=== PATIENT | male | born 1960 | race Caucasian/White ===

== ENCOUNTER 2017-12-21 01:45 | Inpatient (IN) | payer OTHER ==
[~2017-12-21] VITALS: Ht 170.2 cm; Wt 129.5 kg
[2017-12-21] VITALS (8 sets, daily range): BP systolic 111–220; BP diastolic 58–102
[~2017-12-21 01:45] MED LIST: ASPIRIN325 MG PO; LEXAPRO20 MG PO; LOSARTAN-HCTZ1 EACH PO; METOPROLOL SUCC50 MG PO; NORCO 7.5-3251 EACH PO; SEROQUEL100 MG PO; TRAZODONE HCL100 MG PO; TRICOR145 MG PO; ULTRAM50 MG PO
--- OUTSIDE RECORDS SUMMARY | 2017-12-21 02:04 | XMS REPORT | Clinical Summary ---
Author Author [employer] Address Unknown Phone Unavailable Care Team Providers Care Maintenance Man Name Role Phone Nika Newsome MD PCP Allergies Not on File Current Medications Not on file Active Problems Not on file Encounters Date Type Specialty Care Team Description 11/27/2017 Transcribe Physical Therapy Homero Dick MD Trochanteric bursitis of Orders right hip (Primary Dx) after 12/20/2016 Social History Tobacco Use Types Packs/Day Years Used Date Never Assessed Sex Assigned at Date Recorded Not on file Last Filed Vital Signs Not on file Plan of Treatment Date Type Specialty Care Team Description 12/23/2017 Office Visit Physical Therapy Homero Dick MD [address] [place] [phone] K nox, Jovan, PT 12/25/2017 Office Visit Physical Therapy Homero Dick MD [address] [place] [phone] F Whit olmedo, COLLIERY CLERK 12/30/2017 Office Visit Physical Therapy Homero Dick MD [address] [place] [phone] K nox, Jovan, PT 01/01/2018 Office Visit Physical Therapy Homero Dick MD [address] [place] [phone] K nox, Jovan, PT 01/06/2018 Office Visit Physical Therapy Homero Dick MD [address] [place] [address] [phone] K nox, Jovan, PT 01/08/2018 Office Visit Physical Therapy Homero Dick MD [address] [place] [phone] K nox, Jovan, PT Health Maintenance Due Date Last Done Comments COLONOSCOPY 2010 INFLUENZA VACCINE 04/29/2017 Results Not on fileafter 12/20/2016 Insurance Payer Benefit Subscriber ID Type Phone Address Plan / Group [employer] OPEN xxxxxxxxxxx H[place]ESS/[place] [address]
[2017-12-21] MEDS ORDERED: SODIUM CHLORIDE 0.9% 1000ML 1,000 ML IV SCH (02:30)
[2017-12-21] MEDS: HYDROMORPHONE 1MG/1ML INJ IV PRN ×5 (03:18→22:01)
[2017-12-21] MEDS ORDERED: LOSARTAN-HCTZ1 EAC1 PO (03:33)
[2017-12-21] MEDS ORDERED: METHOCARBAMOL750 MG PO (03:33)
[2017-12-21] MEDS ORDERED: FOLIC ACID1 MG PO (03:33)
[2017-12-21] MEDS ORDERED: CLONIDINE HCL0.1 MG PO (03:33)
[2017-12-21] MEDS ORDERED: FERROUS SULFAT325 MG PO (03:33)
[2017-12-21] MEDS ORDERED: LORAZEPAM0.5 MG PO (03:33)
[2017-12-21] MEDS ORDERED: MELOXICAM7.5 MG PO (03:33)
[2017-12-21 06:24] LABS: BASOPHILS % 0.3 % (0.0-1.0); EOSINOPHILS % 0.3 % (0.0-6.0); HEMATOCRIT 36.2 % (38.2-49.6); LYMPHOCYTES # (AUTO) 0.2 (1.0-3.2); LYMPHOCYTES % 2.2 % (18.0-39.1); MEAN CORPUSCULAR HEMOGLOBIN 29.3 pg (28-32); MEAN CORPUSCULAR HGB CONC 33.1 g/dL (31-35); MEAN CORPUSCULAR VOLUME 88.5 fL (81-99); MONOCYTES # (AUTO) 0.3 (0.2-0.8); MONOCYTES % 4.3 % (4.4-11.3); NEUTROPHILS # (AUTO) 6.4 (2.1-6.9); PLATELET COUNT 154 x10e3/uL (140-360); RED BLOOD COUNT 4.09 x10e6/uL (4.3-5.7); RED CELL DISTRIBUTION WIDTH 14.3 % (11.7-14.4)
[2017-12-21] MEDS ORDERED: ACETAMINOPHEN 1000 MG/100 ML IV PRN (06:45)
[2017-12-21 06:53] LABS: ALBUMIN 3.5 g/dL (3.5-5.0); ALBUMIN/GLOBULIN RATIO 1.3 (0.8-2.0); CREATININE, SERUM 1.44 mg/dL (0.72-1.25)
[2017-12-21] MEDS: ONDANSETRON HCL INJ 2 MG/ML VIAL IV PRN ×3 (07:10→16:02)
[2017-12-21] MEDS: SODIUM CHLORIDE 0.9% 1000ML 1,000 ML IV SCH ×2 (08:50→20:41)
[2017-12-21] MEDS: NICOTINE 7 MG PATCH TOP SCH (08:50)
[2017-12-21] MEDS: QUETIAPINE FUMARATE 100 MG TAB PO SCH (20:42)
[2017-12-21] MEDS: CLONIDINE HCL 0.1 MG TAB PO SCH (20:42)
[2017-12-22 00:48] VITALS: BP 91/54
[2017-12-22 04:00] VITALS: BP 127/58
[2017-12-22] MEDS: SODIUM CHLORIDE 0.9% 1000ML 1,000 ML IV SCH ×3 (04:15→23:22)
[2017-12-22] MEDS: HYDROMORPHONE 1MG/1ML INJ IV PRN ×4 (06:46→23:23)
[2017-12-22 07:55] LABS: BASOPHILS % 0.1 % (0.0-1.0); EOSINOPHILS # (AUTO) 0.3 (0.0-0.4); EOSINOPHILS % 4.2 % (0.0-6.0); HEMATOCRIT 30.6 % (38.2-49.6); HEMOGLOBIN 9.9 g/dL (14.0-18.0); LYMPHOCYTES # (AUTO) 0.5 (1.0-3.2); LYMPHOCYTES % 7.7 % (18.0-39.1); MEAN CORPUSCULAR HEMOGLOBIN 29.6 pg (28-32); MEAN CORPUSCULAR HGB CONC 32.4 g/dL (31-35); MEAN CORPUSCULAR VOLUME 91.3 fL (81-99); MONOCYTES # (AUTO) 0.5 (0.2-0.8); MONOCYTES % 6.8 % (4.4-11.3); NEUTROPHILS # (AUTO) 5.4 (2.1-6.9); NEUTROPHILS % 80.6 % (38.7-80.0); PLATELET COUNT 119 x10e3/uL (140-360); RED BLOOD COUNT 3.35 x10e6/uL (4.3-5.7); RED CELL DISTRIBUTION WIDTH 14.6 % (11.7-14.4)
[2017-12-22 08:21] LABS: ALBUMIN 3.1 g/dL (3.5-5.0); ALBUMIN/GLOBULIN RATIO 1.1 (0.8-2.0); ANION GAP 11.2 mmol/L (8-16); CALCIUM 8.9 mg/dL (8.4-10.2); CREATININE, SERUM 1.41 mg/dL (0.72-1.25); POTASSIUM 3.2 mmol/L (3.5-5.1)
[2017-12-22 08:50] VITALS: BP 131/66
[2017-12-22] MEDS ORDERED: GADOBENATE DIMEGLUMINE 0 ML IV ONE (09:22)
[2017-12-22] MEDS: NICOTINE 7 MG PATCH TOP SCH (09:25)
[2017-12-22] MEDS ORDERED: ACETAMINOPHEN 1000 MG/100 ML IV PRN (11:00)
[2017-12-22 12:00] VITALS: BP 133/67
[2017-12-22] MEDS: ONDANSETRON HCL INJ 2 MG/ML VIAL IV PRN ×3 (14:10→23:22)
--- NOTE | 2017-12-22 16:17 | Consultation ---
DATE OF CONSULTATION: December 21, 2017 CHIEF COMPLAINT: Abdominal pain. HISTORY OF PRESENT ILLNESS: Patient is a 57-year-old male with a 1-day history of pain of sudden onset in the epigastric area with some mild nausea, but no vomiting. Patient denies history of previous episode. No fatty food intolerance. No fever or chills. Patient states he has quit drinking many years ago. PAST MEDICAL HISTORY: Negative for any chronic medical condition. SURGICAL HISTORY: Positive for back and hip surgery. DRUG ALLERGIES: NONE. SOCIAL HABITS: The patient denied current alcohol use or smoking. REVIEW OF SYSTEMS: No chest pain, shortness of breath, or cough. PHYSICAL EXAMINATION VITALS: T-max 100. GENERAL: Patient is awake, alert, in moderate discomfort. HEENT: Sclerae are nonicteric. NECK: Supple. LUNGS: Clear. HEART: Regular rate and rhythm. ABDOMEN: Soft with some mild guarding in the epigastrium. No rebound. EXTREMITIES: Without cyanosis or edema. LABS: White cell count 6.9, hemoglobin of 12. Creatinine of 1.4, bilirubin 3.7 with AST of 121, AST 85, and alkaline phosphatase is 45. Ultrasound of gallbladder reportedly showed gallstones. ASSESSMENT: Cholelithiasis with elevated liver function tests. Probable cholecystitis. PLAN: MRCP to rule out bile duct stone. If negative, will proceed with cholecystectomy. Job#: [id number]
[2017-12-22 16:33] VITALS: BP 143/64
[2017-12-22 20:00] VITALS: BP 167/80
[2017-12-22] MEDS: QUETIAPINE FUMARATE 100 MG TAB PO SCH (21:51)
[2017-12-22] MEDS: CLONIDINE HCL 0.1 MG TAB PO SCH (21:52)
[2017-12-23] VITALS (7 sets, daily range): BP systolic 140–159; BP diastolic 64–79
[2017-12-23] MEDS: SODIUM CHLORIDE 0.9% 1000ML 1,000 ML IV SCH ×3 (00:15→21:27)
[2017-12-23] MEDS: HYDROMORPHONE 1MG/1ML INJ IV PRN ×5 (04:05→22:00)
[2017-12-23] MEDS: ONDANSETRON HCL INJ 2 MG/ML VIAL IV PRN ×3 (04:05→22:00)
[2017-12-23 07:22] LABS: BASOPHILS % 0.3 % (0.0-1.0); EOSINOPHILS # (AUTO) 0.4 (0.0-0.4); EOSINOPHILS % 6.1 % (0.0-6.0); HEMATOCRIT 30.6 % (38.2-49.6); HEMOGLOBIN 9.6 g/dL (14.0-18.0); LYMPHOCYTES # (AUTO) 0.9 (1.0-3.2); LYMPHOCYTES % 13.2 % (18.0-39.1); MEAN CORPUSCULAR HEMOGLOBIN 28.9 pg (28-32); MEAN CORPUSCULAR HGB CONC 31.4 g/dL (31-35); MEAN CORPUSCULAR VOLUME 92.2 fL (81-99); MONOCYTES # (AUTO) 0.6 (0.2-0.8); MONOCYTES % 9.5 % (4.4-11.3); NEUTROPHILS # (AUTO) 4.7 (2.1-6.9); NEUTROPHILS % 70.5 % (38.7-80.0); PLATELET COUNT 126 x10e3/uL (140-360); RED BLOOD COUNT 3.32 x10e6/uL (4.3-5.7); RED CELL DISTRIBUTION WIDTH 14.5 % (11.7-14.4)
[2017-12-23 07:56] LABS: ALBUMIN 2.9 g/dL (3.5-5.0); ANION GAP 10.5 mmol/L (8-16); CALCIUM 8.9 mg/dL (8.4-10.2); CREATININE, SERUM 1.41 mg/dL (0.72-1.25); POTASSIUM 3.5 mmol/L (3.5-5.1)
[2017-12-23] MEDS: NICOTINE 7 MG PATCH TOP SCH (08:18)
--- NOTE | 2017-12-23 17:17 | Consultation ---
DATE OF CONSULTATION: December 23, 2017 GASTROENTEROLOGY CONSULTATION ADMITTING PHYSICIAN: Dr. Cm. REQUESTING PHYSICIAN: Dr. Mooney. CHIEF COMPLAINT: Abdominal pain and gallstone MRCP positive. HISTORY OF PRESENT ILLNESS: The patient is a 57-year-old male with a history of epigastric abdominal pain, nonradiating, with complaints of some mild nausea but denies any vomiting. The pain had been going on for about a day. He denies any previous episodes of the abdominal pain. He denies any overt signs of bleeding. He denies any chest pain, shortness of breath or hematuria. His previous colonoscopy was just [address] Baca from our group, but he denies having an EGD in the past. PAST MEDICAL HISTORY: Controlled hypertension. SURGICAL HISTORY: Hip surgery, back surgery, retinal detachment, hemorrhoidectomy and tonsillectomy. ALLERGIES: NO KNOWN DRUG ALLERGIES. SOCIAL HISTORY: Denies any alcohol use. Denies any smoking. REVIEW OF SYSTEMS: Has mild dyspnea on exertion but denies any hemoptysis, denies any chest pain. Denies any productive cough, hematemesis, hematochezia, melena or dysphagia. PHYSICAL EXAMINATION VITALS: See chart. GENERAL: Awake, alert and oriented. HEENT: Nonicteric. NECK: Supple, nontender. LUNGS: Clear to auscultation bilaterally. HEART: Regular rate and rhythm. No murmurs. ABDOMEN: Soft. Mild tenderness in epigastric area. No masses or rebound. EXTREMITIES: No cyanosis, no edema, no clubbing. NEUROLOGIC: Alert, oriented x3. LABS: White count is 6.9, hemoglobin of 12, platelet count of 154. Potassium of 3.0, creatinine 1.44. Bilirubin 3.7, AST 121, ALT 85. Total protein 6.2. IMAGING: MRCP was done and positive for choledocholithiasis. Ultrasound of gallbladder showed gallstones. ASSESSMENT 1. Choledocholithiasis, positive magnetic resonance cholangiopancreatography with cholelithiasis on ultrasound. 2. Nausea and vomiting, improving. 3. Elevated liver function tests. PLAN 1. ERCP scheduled for tomorrow with Dr. Tapia. NPO after midnight. Consent placed. Discussed with patient and nursing. R/B/A including doing nothing discussed with patient, 5% risk of pancreatitis ( with 1% severe pancreatitis) discussed with him. 2. Will proceed with cholecystectomy. Surgery is following. That is to be performed on . 3. Supportive care. Thank you for consulting us. We will follow. Dictated by: Dorina Foley PA-C Job#: [id number] EV MTDD
[2017-12-23] MEDS: QUETIAPINE FUMARATE 100 MG TAB PO SCH (21:28)
[2017-12-23] MEDS: CLONIDINE HCL 0.1 MG TAB PO SCH (21:28)
[2017-12-24] VITALS (7 sets, daily range): BP systolic 156–189; BP diastolic 71–86
[2017-12-24] MEDS: ONDANSETRON HCL INJ 2 MG/ML VIAL IV PRN ×3 (05:00→16:30)
[2017-12-24] MEDS: HYDROMORPHONE 1MG/1ML INJ IV PRN ×4 (05:00→21:36)
[2017-12-24] MEDS: SODIUM CHLORIDE 0.9% 1000ML 1,000 ML IV SCH ×2 (05:19→16:39)
[2017-12-24 07:23] LABS: AMYLASE 49 U/L (25-125); LIPASE 79 U/L (8-78)
[2017-12-24] MEDS: NICOTINE 7 MG PATCH TOP SCH (09:00)
--- NOTE | 2017-12-24 16:34 | Diagnostic Imaging Report ---
PROCEDURE:ERCP TO BE READ TECHNIQUE: Fluoroscopic guidance provided for ERCP 1 minute 59 seconds of fluoroscopic time was utilized. Cumulative area dose products 1725.77 [id number] Number images: 18 Report of surgery not provided. INDICATION:Cholelithiasis COMPARISON:[facility], MR, MRI MRCP , 12/22/2017, 14:18. FINDINGS: Initial warehouse processor image demonstrates no evidence of calculus or surgical clip. Endoscopic images demonstrate passage of a wire into the common bile duct and opacification of the right and left intrahepatic ducts. A small filling defect was identified in the proximal common bile duct. A balloon is identified on the last 2 images. The common bile duct is mildly distended without stricture. The visualized intrahepatic ducts are normal in diameter and morphology. The cystic duct is patent. CONCLUSION: No evidence of choledocholithiasis at the conclusion of the exam. Mildly distended common bile duct. No intrahepatic biliary ductal dilatation. Dictated by: Faheem Mejias M.D. on 12/24/2017 at 16:35 Electronically approved by: Faheem Mejias M.D. on 12/24/2017 at 16:35
[2017-12-24] MEDS: LORAZEPAM INJ 2 MG/ML VIAL IV PRN (16:55)
[2017-12-24] MEDS ORDERED: LIDOCAINE HCL 2% LOCAL INJ 5 ML SDV VIAL INJ ONE (17:44)
[2017-12-24] MEDS ORDERED: SUCCINYLCHOLINE 200 MG/10 ML SYR ONE (17:44)
[2017-12-24] MEDS ORDERED: ROCURONIUM BROMIDE 10 MG/ML 5ML VIAL ONE (17:44)
[2017-12-24] MEDS ORDERED: SEVOFLURANE INHAL SOLN 250 ML PEN BTL ONE (17:44)
[2017-12-24] MEDS ORDERED: PROPOFOL IV EMULSION 10 MG/ML 20 ML VIAL ONE (17:44)
[2017-12-24] MEDS ORDERED: ACETAMINOPHEN 325 MG TAB PO PRN (17:45)
[2017-12-24] MEDS: LIDOCAINE 5% PATCH TP SCH (17:55)
[2017-12-24] MEDS ORDERED: KETAMINE HCL INJ 50 MG/ML 10 ML VIAL ONE (17:56)
[2017-12-24] MEDS ORDERED: FENTANYL CITRATE/PF 100MCG/2 ML INJ ONE (17:56)
[2017-12-24] MEDS ORDERED: MIDAZOLAM HCL 2 MG/2 ML VIAL ONE (17:56)
[2017-12-24] MEDS: QUETIAPINE FUMARATE 100 MG TAB PO SCH (20:38)
[2017-12-24] MEDS: CLONIDINE HCL 0.1 MG TAB PO SCH (20:38)
[2017-12-25] VITALS (8 sets, daily range): BP systolic 160–191; BP diastolic 75–94
[2017-12-25] MEDS: LORAZEPAM INJ 2 MG/ML VIAL IV PRN ×4 (00:39→21:21)
[2017-12-25] MEDS ORDERED: HYDRALAZINE HCL 20 MG/ML VIAL IV ONE (00:45)
[2017-12-25] MEDS: HYDROMORPHONE 1MG/1ML INJ IV PRN ×4 (04:16→22:40)
[2017-12-25] MEDS: HYDRALAZINE HCL 20 MG/ML VIAL IV PRN (05:13)
[2017-12-25 07:12] LABS: BASOPHILS % 0.4 % (0.0-1.0); HEMATOCRIT 31.1 % (38.2-49.6); HEMOGLOBIN 10.2 g/dL (14.0-18.0); LYMPHOCYTES # (AUTO) 0.8 (1.0-3.2); LYMPHOCYTES % 13.5 % (18.0-39.1); MEAN CORPUSCULAR HEMOGLOBIN 28.6 pg (28-32); MEAN CORPUSCULAR HGB CONC 32.8 g/dL (31-35); MEAN CORPUSCULAR VOLUME 87.1 fL (81-99); MONOCYTES # (AUTO) 0.5 (0.2-0.8); MONOCYTES % 8.6 % (4.4-11.3); NEUTROPHILS # (AUTO) 4.4 (2.1-6.9); NEUTROPHILS % 76.3 % (38.7-80.0); PLATELET COUNT 164 x10e3/uL (140-360); RED BLOOD COUNT 3.57 x10e6/uL (4.3-5.7); RED CELL DISTRIBUTION WIDTH 13.9 % (11.7-14.4)
[2017-12-25 07:34] LABS: ALANINE AMINOTRANSFERASE 112 IU/L (0-55); ALBUMIN 3.1 g/dL (3.5-5.0); ALKALINE PHOSPHATASE 128 IU/L (40-150); ANION GAP 10.8 mmol/L (8-16); BLOOD UREA NITROGEN 14 mg/dL (7-26); BUN/CREATININE RATIO 13 (6-25); CALCIUM 9.3 mg/dL (8.4-10.2); CARBON DIOXIDE 27 mmol/L (22-29); CHLORIDE 108 mmol/L (98-107); EST GLOMERULAR FILTRATION RATE > 60 ML/MIN (60-); GLUCOSE 120 mg/dL (74-118); POTASSIUM 3.8 mmol/L (3.5-5.1); SODIUM 142 mmol/L (136-145)
[2017-12-25 07:52] LABS: MAGNESIUM 1.8 MG/DL (1.3-2.1)
[2017-12-25 08:42] LABS: BLAST CELLS % MANUAL 2; LYMPHOCYTES % (MANUAL) 11 % (19-48); MONOCYTES % (MANUAL) 8 % (3.4-9.0); NEUTROPHILS % (MANUAL) 76 % (40-74)
[2017-12-25 08:43] LABS: ANISOCYTOSIS SLIGHT; PLATELET ESTIMATE ADEQUATE; PLATELET MORPHOLOGY COMMENT FEW LARGE; RBC MORPHOLOGY COMMENT NORMAL
[2017-12-25] MEDS: NICOTINE 7 MG PATCH TOP SCH (09:00)
[2017-12-25] MEDS: LIDOCAINE 5% PATCH TP SCH (09:00)
[2017-12-25] MEDS: SODIUM CHLORIDE 0.9% 1000ML 1,000 ML IV SCH ×2 (10:10→12:15)
[2017-12-25] MEDS ORDERED: BUPIVACAINE 0.25%/EPI 30ML SDV INJ ONE (11:01)
[2017-12-25] MEDS ORDERED: HYDRALAZINE HCL 20 MG/ML VIAL ONE (14:32)
[2017-12-25] MEDS ORDERED: HYDROMORPHONE 1MG/1ML INJ ONE ×2 (14:41→14:50)
--- NOTE | 2017-12-25 15:47 | Operative Report ---
DATE OF PROCEDURE: December 25, 2017 PREOPERATIVE DIAGNOSIS: Cholecystitis. POSTOPERATIVE DIAGNOSIS: Cholecystitis. OPERATIVE PROCEDURE: Laparoscopic cholecystectomy. ANESTHESIA: General. INDICATIONS FOR SURGERY: The patient is a 57-year-old male with a history of abdominal pain with gallstone and common bile duct stone. ERCP has cleared the bile duct of stone. The patient consented for laparoscopic cholecystectomy. Attendant risks were discussed. PROCEDURE FINDINGS: Acute cholecystitis with gallstones. PROCEDURE: The patient was brought to the OR intubated. Abdomen was prepped with alcohol and draped in a sterile fashion. A supraumbilical incision was made and a 10-mm port inserted. Insufflation then begun. Under direct vision, another port site was placed in the midepigastric and right upper quadrant. Gallbladder was grossly inflamed and distended. It did decompress with an endoscopic needle. Fundus then retracted in a cephalad direction. Neck of the gallbladder was retracted laterally. With blunt and sharp dissection, we isolated the cystic artery and cystic duct, and clearly visualized the junction of the bile duct before triple clipping the cystic artery and cystic duct, and dividing them between clips. Gallbladder detached from the liver with cautery and taken out using an Endopouch through the umbilical incision. The operative field was then irrigated. Hemostasis achieved. A 19-[place] Alfredo drain was placed in Armstrong's pouch, and taken out through the right upper quadrant port site. All other ports were removed under direct vision. Fascia closure with 0 Vicryl. Skin was closed with subcuticular stitch. The patient was extubated and transported to the recovery room in guarded condition. Estimated blood loss was 10 mL. Job#: [id number] DC
[2017-12-25] MEDS ORDERED: ONDANSETRON HCL INJ 2 MG/ML VIAL ONE (18:41)
[2017-12-25] MEDS ORDERED: ROCURONIUM BROMIDE 10 MG/ML 5ML VIAL ONE (18:41)
[2017-12-25] MEDS ORDERED: DEXAMETHASONE SOD PHOS INJ 4 MG/ML VIAL ONE (18:41)
[2017-12-25] MEDS ORDERED: LIDOCAINE HCL 2% LOCAL INJ 5 ML SDV VIAL INJ ONE (18:41)
[2017-12-25] MEDS ORDERED: PROPOFOL IV EMULSION 10 MG/ML 20 ML VIAL ONE (18:41)
[2017-12-25] MEDS ORDERED: DESFLURANE 240 ML BTL INH ONE (18:41)
[2017-12-25] MEDS ORDERED: MIDAZOLAM HCL 2 MG/2 ML VIAL ONE (18:50)
[2017-12-25] MEDS ORDERED: FENTANYL CITRATE/PF 100MCG/2 ML INJ ONE (18:50)
[2017-12-25] MEDS: QUETIAPINE FUMARATE 100 MG TAB PO SCH (20:40)
[2017-12-25] MEDS: CLONIDINE HCL 0.1 MG TAB PO SCH (20:40)
--- NOTE | 2017-12-25 22:39 | Progress Note ---
DATE: December 25, 2017 GI PROGRESS REPORT SUBJECTIVE: The patient underwent laparoscopic cholecystectomy today. He is feeling much better than before. He has been allowed to drink liquids after surgery. He is passing flatus. REVIEW OF SYSTEMS GENERAL: No fever or chills. CVS: No chest pain or palpitations. RESPIRATORY: No cough or expectoration. INPATIENT MEDICATIONS: Reviewed as per NOV. He is not getting any antibiotic. PHYSICAL EXAMINATION VITAL SIGNS: Temperature 96.6, pulse 59, respirations 16, blood pressure 174/76, oxygen saturation 98% on room air. GENERAL: Not in any acute distress. HEENT: Moist mucous membrane. Anicteric sclerae. CVS: S1 and S2 regular. LUNGS: Bilaterally grossly clear. ABDOMEN: Soft. Incisional tenderness in right upper quadrant, right LUISA drain with minimal serosanguineous fluid. Abdomen otherwise soft. Minimal bowel sounds. EXTREMITIES: Warm. No leg edema. LABS: WBC 5.7, hemoglobin 10.2, hematocrit 31.1, platelet count 164,000. Sodium 142, potassium 3.8, chloride 108, bicarb 27, BUN 14, creatinine 1.10. Liver enzymes: Total bilirubin has gone up to 2.0 from 0.9. AST 117, ALT 112, alkaline phosphatase 128 and lipase is 34. IMPRESSION 1. Acute cholecystitis with choledocholithiasis, status post endoscopic retrograde cholangiopancreatography and sphincterotomy with ductal clearance followed by laparoscopic cholecystectomy today. 2. Liver enzyme has gotten worse than yesterday. PLAN: Liver enzyme is up, expected post cholecystectomy or post ERCP secondary to instrumentation. Cholangiogram during ERCP showed no filling defect, only some sludge were removed. Repeat the liver enzymes tomorrow. Postop care as per surgery. Job#: [id number]
[2017-12-26] VITALS: BP 165/77
[2017-12-26] MEDS: HYDROMORPHONE 1MG/1ML INJ IV PRN ×3 (02:43→10:20)
[2017-12-26 04:00] VITALS: BP 163/87
[2017-12-26] MEDS: LORAZEPAM INJ 2 MG/ML VIAL IV PRN ×2 (04:01→10:55)
[2017-12-26 07:16] LABS: BASOPHILS % 0.4 % (0.0-1.0); EOSINOPHILS % 0.3 % (0.0-6.0); HEMATOCRIT 31.8 % (38.2-49.6); HEMOGLOBIN 10.2 g/dL (14.0-18.0); LYMPHOCYTES # (AUTO) 1.6 (1.0-3.2); LYMPHOCYTES % 20.5 % (18.0-39.1); MEAN CORPUSCULAR HEMOGLOBIN 28.8 pg (28-32); MEAN CORPUSCULAR HGB CONC 32.1 g/dL (31-35); MEAN CORPUSCULAR VOLUME 89.8 fL (81-99); MONOCYTES # (AUTO) 0.7 (0.2-0.8); MONOCYTES % 8.7 % (4.4-11.3); NEUTROPHILS # (AUTO) 5.1 (2.1-6.9); NEUTROPHILS % 67.6 % (38.7-80.0); PLATELET COUNT 173 x10e3/uL (140-360); RED BLOOD COUNT 3.54 x10e6/uL (4.3-5.7); RED CELL DISTRIBUTION WIDTH 14.4 % (11.7-14.4)
[2017-12-26 07:42] LABS: ALANINE AMINOTRANSFERASE 88 IU/L (0-55); ALBUMIN 3.2 g/dL (3.5-5.0); ALKALINE PHOSPHATASE 105 IU/L (40-150); ANION GAP 11.7 mmol/L (8-16); BLOOD UREA NITROGEN 13 mg/dL (7-26); BUN/CREATININE RATIO 12 (6-25); CALCIUM 9.2 mg/dL (8.4-10.2); CARBON DIOXIDE 27 mmol/L (22-29); CHLORIDE 106 mmol/L (98-107); CREATININE, SERUM 1.06 mg/dL (0.72-1.25); EST GLOMERULAR FILTRATION RATE > 60 ML/MIN (60-); GLUCOSE 98 mg/dL (74-118); POTASSIUM 3.7 mmol/L (3.5-5.1); SODIUM 141 mmol/L (136-145)
[2017-12-26 09:04] VITALS: BP 184/86
[2017-12-26 09:04] LABS: BAND NEUTROPHILS % (MANUAL) 2 %; EOSINOPHILS % (MANUAL) 1 % (0-7); LYMPHOCYTES % (MANUAL) 12 % (19-48); MONOCYTES % (MANUAL) 6 % (3.4-9.0); NEUTROPHILS % (MANUAL) 73 % (40-74)
[2017-12-26 09:05] LABS: PLATELET ESTIMATE ADEQUATE; PLATELET MORPHOLOGY COMMENT NORMAL; RBC MORPHOLOGY COMMENT NORMAL
[2017-12-26 09:06] LABS: HYPOCHROMASIA SLIGHT
[2017-12-26] MEDS: NICOTINE 7 MG PATCH TOP SCH (09:51)
[2017-12-26] MEDS: LIDOCAINE 5% PATCH TP SCH (09:51)
[2017-12-26 11:00] VITALS: BP 174/74
[2017-12-26] MEDS: HYDRALAZINE HCL 20 MG/ML VIAL IV PRN (12:07)
[2017-12-26] MEDS ORDERED: ULTRAM 50MG50 MG PO (12:41)
--- NOTE | 2018-01-08 09:20 | Diagnostic Imaging Report ---
PROCEDURE: MRCP WITHOUT CONTRAST TECHNIQUE: Multiplanar and multisequence evaluation of the abdomen was performed without administration of contrast. Thin and thick slab MRCP sequences were acquired. COMPARISON: None. INDICATIONS: Abdomen pain FINDINGS: LACK OF GADOLINIUM DECREASES SENSITIVITY FOR DETECTION OF INTRA-ABDOMINAL PATHOLOGY. LIVER: Diffuse hepatic steatosis. No focal hepatic lesions. BILIARY: 0.6 cm filling defect in the distal common bile duct near the pancreatic duct. (Series 11 image 14). The distal common bile duct measures 0.7 cm. Additional questionable filling defect in the right hepatic duct (series 12 image 3). PANCREAS: No mass or ductal dilatation. SPLEEN: No splenomegaly. ADRENALS: No nodules. KIDNEYS: No hydronephrosis or mass in the imaged portion of the kidneys. 1.2 cm cyst in the superior pole of the right and left kidneys. 1.0 cm cyst in the anterior interpolar region of the right kidney. 3.1 cm cyst in the anterior interpolar region of the left kidney. PERITONEUM / RETROPERITONEUM: No upper abdominal free fluid. LYMPH NODES: No upper abdominal lymphadenopathy. VESSELS: Unremarkable. BONES AND SOFT TISSUES: Posterior thoracolumbar fusion hardware. IMPRESSION: 1. Intraductal filling defect in the distal common bile duct, consistent with choledocholithiasis. Additional filling defect in the right hepatic duct. 2. Normal gallbladder. Dictated by: Phillip Dsouza M.D. on 12/22/2017 at 15:08 Electronically approved by: Phillip Dsouza M.D. on 12/22/2017 at 15:08 Electronically approved by: Phillip Dsouza M.D. on 12/22/2017 at 15:10
== END 2017-12-26 14:10 | disposition home or self-care (01) | DRG 419 ==
LOC: INTOOBSV 02:02 → MED/SURG 02:02 → OBSVTOIN 12-23 10:50
PROVIDERS: ADMIT Internal Medicine; ATTEND Internal Medicine
PROC: 0FC98ZZ Extirpation of Matter from Common Bile Duct, Via Natural or Artificial Opening Endoscopic (ICD-10-PCS; principal; 2017-12-24 12:30)
PROC: 0FT44ZZ Resection of Gallbladder, Percutaneous Endoscopic Approach (ICD-10-PCS; 2017-12-25)
DX: K80.42 Calculus of bile duct with acute cholecystitis without obstruction (principal); N18.3 Chronic kidney disease, stage 3 (moderate); I12.9 Hypertensive chronic kidney disease with stage 1 through stage 4 chronic kidney disease, or unspecified chronic kidney disease; F41.9 Anxiety disorder, unspecified; D64.9 Anemia, unspecified
CPT/HCPCS: 36415; 74181; 74328; 80053; 82150; 83690; 83735; 85025; 88304; 96361; G0378; J0360; J1100; J1170; J2001; J2060; J2250; J2405; J7030

== ENCOUNTER → 2018-04-14 | Day surgery (SDC) | payer OTHER ==
[~2018-04-14] MED LIST changes: +BUPIVACAINE HCL 0.5% 10ML MPF VIAL INJ ONE; +CLONIDINE HCL0.1 MG PO; +FENTANYL CITRATE/PF 100MCG/2 ML INJ ONE; +FERROUS SULFAT325 MG PO; +FOLIC ACID1 MG PO; +IOPAMIDOL 200 MG/ML 20 ML VIAL IT ONE; +KETAMINE HCL INJ 50 MG/ML 10 ML VIAL ONE; +LIDOCAINE HCL 1% LOCAL INJ 20 ML VIAL ONE; +LORAZEPAM0.5 MG PO; +LOSARTAN-HCTZ1 EAC1 PO; +MELOXICAM7.5 MG PO; +METHOCARBAMOL750 MG PO; +MIDAZOLAM HCL 2 MG/2 ML VIAL ONE; +PROPOFOL IV EMULSION 10 MG/ML 20 ML VIAL ONE; +TRIAMCINOLONE ACET 40 MG/ML VIAL ONE; +ULTRAM 50MG50 MG PO; +VISTARIL25 MG; +VITAMIN B-121000 MC1; +VITAMIN D32000 UNIT
--- NOTE | 2018-04-14 08:30 | Operative Report ---
DATE OF PROCEDURE: April 14, 2018 OXYACETYLENE WELDER: Alvin Alston PA-C The patient was brought to the operating room for induction of anesthesia. Throughout this case, my PA's assistance was necessary for retraction of soft tissue and positioning of the extremity. This allows for efficient and technically successful execution of the operation and is considered medically necessary. PREOPERATIVE DIAGNOSIS: Osteoarthritis, right hip. POSTOPERATIVE DIAGNOSIS: Osteoarthritis, right hip. PROCEDURE: Right hip fluoroscopic-guided corticosteroid injection. INDICATIONS: The patient is a 57-year-old gentleman who has arthritis in his right hip. He is not quite ready to proceed with a right total hip replacement. He would like to try a corticosteroid injection. The risks and benefits of the procedure have been explained. He states he understands and wishes to proceed. DESCRIPTION OF PROCEDURE: The patient was brought to the procedure room and given IV sedation. His right hip was prepped and draped in a sterile manner. A preoperative time out was performed. An 18-gauge spinal needle was placed into the hip joint under fluoroscopy. A small amount of synovial fluid was aspirated from the joint confirming intra-articular placement. A mixture of 10 mL of 0.5% Marcaine and 40 mg of Depo-Medrol was then injected into the hip joint. The needle was retrieved and a Band-Aid was applied. He was transported to the recovery room in good condition. There was no blood loss and all needle and sponge counts were correct. Job#: [id number]
== END | disposition home or self-care (01) ==
LOC: OR 05:30
PROVIDERS: ATTEND Specialist
DX: M16.11 Unilateral primary osteoarthritis, right hip (principal); Z96.642 Presence of left artificial hip joint; G47.33 Obstructive sleep apnea (adult) (pediatric); B15.9 Hepatitis A without hepatic coma; I10 Essential (primary) hypertension; N20.0 Calculus of kidney; F41.9 Anxiety disorder, unspecified; Z72.0 Tobacco use; Z01.810 Encounter for preprocedural cardiovascular examination; Z79.82 Long term (current) use of aspirin; Z68.39 Body mass index [BMI] 39.0-39.9, adult
CPT/HCPCS: 20610; 77002; 93005; J2250; J3301; Q9966; J2001

== ENCOUNTER 2018-07-13 05:16 | Inpatient (IN) | payer OTHER ==
[2018-07-10 14:57] LABS: BASOPHILS % 0.4 % (0.0-1.0); EOSINOPHILS # (AUTO) 0.3 (0.0-0.4); EOSINOPHILS % 5.1 % (0.0-6.0); HEMATOCRIT 40.4 % (38.2-49.6); HEMOGLOBIN 13.3 g/dL (14.0-18.0); LYMPHOCYTES # (AUTO) 1.7 (1.0-3.2); LYMPHOCYTES % 30.7 % (18.0-39.1); MEAN CORPUSCULAR HGB CONC 32.9 g/dL (31-35); MEAN CORPUSCULAR VOLUME 91.2 fL (81-99); MONOCYTES # (AUTO) 0.6 (0.2-0.8); MONOCYTES % 9.7 % (4.4-11.3); NEUTROPHILS % 53.7 % (38.7-80.0); PLATELET COUNT 204 x10e3/uL (140-360); RED BLOOD COUNT 4.43 x10e6/uL (4.3-5.7); RED CELL DISTRIBUTION WIDTH 12.8 % (11.7-14.4)
[~2018-07-13] VITALS: Ht 170.2 cm; Wt 126.8 kg
[~2018-07-13 05:16] MED LIST changes: -BUPIVACAINE HCL 0.5% 10ML MPF VIAL INJ ONE; -FENTANYL CITRATE/PF 100MCG/2 ML INJ ONE; -IOPAMIDOL 200 MG/ML 20 ML VIAL IT ONE; -KETAMINE HCL INJ 50 MG/ML 10 ML VIAL ONE; -LIDOCAINE HCL 1% LOCAL INJ 20 ML VIAL ONE; -MIDAZOLAM HCL 2 MG/2 ML VIAL ONE; -PROPOFOL IV EMULSION 10 MG/ML 20 ML VIAL ONE; +QUETIAPINE FUM100 MG PO; -TRIAMCINOLONE ACET 40 MG/ML VIAL ONE; +VENLAFAXINE HCL75 M2 PO; +VENLAFAXINE HCL75 MG PO; -VITAMIN B-121000 MC1; +VITAMIN B-121000 MC1 PO; -VITAMIN D32000 UNIT; +VITAMIN D32000 UNIT PO
[2018-07-13] MEDS ORDERED: ROPIVACAINE 246.25 MG, EPINEPHRINE HCL 1:1000 0.5 MG, CLONIDINE HCL 0.08 MG, KETOROLAC ... INJ ONE ×5 (06:00)
[2018-07-13] MEDS ORDERED: CEFAZOLIN SOD 2 GM/D5W 50ML 50 ML IV ONE (06:28)
[2018-07-13] MEDS ORDERED: CELECOXIB 200 MG CAP ONE (06:28)
[2018-07-13] MEDS ORDERED: DEXAMETHASONE SOD PHOS 10 MG/1 ML VIAL ONE (06:28)
[2018-07-13] MEDS ORDERED: GABAPENTIN 300 MG CAP ONE (06:28)
[2018-07-13] MEDS ORDERED: TRANEXAMIC ACID 1,000 MG/10 ML ML ONE (06:30)
[2018-07-13] MEDS ORDERED: BACITRACIN 50,000 UNIT VIAL ONE (06:30)
[2018-07-13] MEDS ORDERED: MUPIROCIN 2% OINT 22 GM TUBE ONE (06:30)
[2018-07-13] MEDS ORDERED: BUPIVACAINE 7.5MG/ML /DEXTROSE 82.5MG/ML 2 ML AMP INJ ONE (06:55)
[2018-07-13 07:13] LABS: ANION GAP 17.9 mmol/L (8-16); CALCIUM 9.6 mg/dL (8.4-10.2); CREATININE, SERUM 1.37 mg/dL (0.72-1.25); POTASSIUM 3.9 mmol/L (3.5-5.1)
[2018-07-13] MEDS: SODIUM CHLORIDE 0.9% 1000ML 1,000 ML IV SCH ×2 (08:58→18:58)
[2018-07-13] MEDS ORDERED: DIPHENHYDRAMINE HCL INJ 50 MG/ML VIAL IM/IV PRN (09:00)
[2018-07-13] MEDS ORDERED: KETOROLAC TROMETHAMINE 30 MG/ML VIAL IV PRN (09:00)
[2018-07-13] MEDS ORDERED: ZOLPIDEM TARTRATE 5 MG TAB PO PRN (09:00)
[2018-07-13] MEDS ORDERED: HYDROCODONE/APAP 5MG-325MG TAB PO PRN (09:00)
[2018-07-13] MEDS ORDERED: ACETAMINOPHEN 650 MG SUPP PR PRN (09:00)
[2018-07-13] MEDS ORDERED: PROMETHAZINE HCL (IM) 25 MG/ML VIAL INJ PRN (09:00)
[2018-07-13] MEDS ORDERED: HYDROCODONE/APAP 7.5MG-325MG 1 EA TAB PO PRN (09:00)
--- NOTE | 2018-07-13 09:41 | Diagnostic Imaging Report ---
PROCEDURE:X-RAY PELVIS, AP VIEW COMPARISON:None. INDICATIONS:RIGHT HIP SX TODAY FINDINGS: Refer to conclusion CONCLUSION: Status post total right hip arthroplasty with intact acetabular cup and femoral stem components. Overlying skin baldomero partially visualized. Partially visualized prior left hip arthroplasty. Dictated by: Homero Reynoso M.D. on 07/13/2018 at 9:49 Electronically approved by: Homero Reynoso M.D. on 07/13/2018 at 9:49
[2018-07-13] MEDS ORDERED: FENTANYL CITRATE/PF 100MCG/2 ML INJ ONE ×2 (09:55→14:32)
[2018-07-13] MEDS ORDERED: MORPHINE SULFATE 2 MG/ML SYR ONE (11:14)
--- NOTE | 2018-07-13 11:35 | Operative Report ---
DATE OF PROCEDURE: July 13, 2018 TERRAZZO GRINDER: Alvin Alston PA-C The patient was brought to the operating room for induction of anesthesia. Throughout this case, my PA's assistance was necessary for retraction of soft tissue and positioning of the extremity. This allows for efficient and technically successful execution of the operation and is considered medically necessary. PREOPERATIVE DIAGNOSIS: Osteoarthritis, right hip. POSTOPERATIVE DIAGNOSIS: Osteoarthritis, right hip. PROCEDURE: Right total hip arthroplasty. *Added complexity due to body mass index of 43. INDICATIONS: The patient is a 57-year-old gentleman with end-stage arthritis of his right hip. He has failed conservative management and would like to proceed with a right total hip replacement. He has undergone a left total hip replacement in the past. He is happy with his outcome. Unfortunately, he has continued to gain significant weight. He now has a BMI of 43. The added risks for complications due to his BMI have been explained and discussed with the patient. He states he understands and accepts those risks. He wishes to proceed. DESCRIPTION OF PROCEDURE: The patient was brought to the operating room and placed under general anesthetic. He was positioned in the left lateral decubitus position. He received prophylactic antibiotics and tranexamic acid in the holding area. His right hip was prepped and draped in a sterile manner. A posterior approach was made to the right hip. A more extensile incision was necessary due to his BMI of 43. Added time and challenges due to the altered surgical field were encountered. Hemostasis was obtained with electrocautery. There was some difficulty in exposing the posterior capsule. A Charnley self-retaining retractor was placed. Care was taken to avoid injury to the sciatic nerve. The posterior capsule and short external rotators were released. The hip was dislocated, and an oscillating saw was used to resect the femoral head. Complete loss of articular cartilage was noted. Acetabular retractors were placed. Again, some difficulties were encountered due to the abundant adipose tissue and deep wound and altered surgical field. Ultimately, a 46-mm reamer was used to establish the true floor of the acetabulum. The socket was then sequentially reamed up to 57 mm. This accomplished bleeding hemispherical cancellous bone. The wound was thoroughly irrigated. A 100-mL premixed pericapsular DHARMESH injection was placed into the surrounding soft tissue. A Vasyl Biomet 58 mm outer diameter OsseoTi socket was then impacted into place. Fixation was good but was also augmented by a single 25-mm screw placed into the dome of the acetabulum. A highly cross-link polyethylene liner with a 36 mm inner diameter was then seated into place. Care was taken to make sure that there was no evidence of soft-tissue interposition. The deep wound was then further irrigated with a shower-tip pulsatile lavage. Attention was directed towards the proximal femur. Again, some challenges were encountered exposing the proximal femur. Box cutting osteotome and taper pin reamer were used to establish entry to the femoral canal. The Vasyl Biomet Taperloc broaches were impacted into place. A #11 stem had good canal fill and rotational stability for trial reductions. A standard 36-mm head provided appropriate soft-tissue balancing and yarsani of limb length and stability. The trial implants were removed. The wound was further irrigated with a shower-tip pulsatile lavage. The final implants were seated, and a final reduction was performed. The posterior capsule was somewhat macerated, but we attempted to repair with interrupted #2 Ethibond. The short external rotators were severely contracted. There was no point in trying to repair them. The tensor fascia and gluteal fascia were closed with interrupted #2 Ethibond. The skin was closed with subcuticular Vicryl and baldomero. Estimated blood loss was approximately 150 mL. All needle and sponge counts were correct. The patient was transported to the recovery room in stable condition. Job#: [id number]
[2018-07-13] MEDS ORDERED: PROMETHAZINE 12.5MG/ NACL 0.9% 50 ML IV PRN (12:00)
[2018-07-13 12:03] VITALS: BP 112/69
[2018-07-13] MEDS: ACETAMINOPHEN 1000 MG/100 ML IV SCH ×2 (12:18→17:46)
[2018-07-13 12:29] VITALS: BP 112/69
[2018-07-13] MEDS ORDERED: LORAZEPAM 0.5 MG TAB PO PRN (13:00)
[2018-07-13] MEDS ORDERED: TRAMADOL HCL 50 MG TAB PO PRN (13:00)
[2018-07-13] MEDS: CEFAZOLIN SOD 1 GM VIAL IV SCH ×2 (13:57→21:35)
[2018-07-13] MEDS ORDERED: CEFAZOLIN SOD 1 GM/D5W 50ML 50 ML IV SCH (14:00)
[2018-07-13] MEDS ORDERED: KETOROLAC TROMETHAMINE 30 MG/ML VIAL ONE (14:22)
[2018-07-13] MEDS ORDERED: GLYCOPYRROLATE INJ 1MG/ 5 ML SYR ONE (14:22)
[2018-07-13] MEDS ORDERED: ROCURONIUM BROMIDE 10 MG/ML 5ML VIAL ONE (14:22)
[2018-07-13] MEDS ORDERED: ONDANSETRON HCL INJ 2 MG/ML VIAL ONE (14:22)
[2018-07-13] MEDS ORDERED: SUCCINYLCHOLINE 200 MG/10 ML SYR ONE (14:22)
[2018-07-13] MEDS ORDERED: PROPOFOL IV EMULSION 10 MG/ML 20 ML VIAL ONE (14:22)
[2018-07-13] MEDS ORDERED: DEXAMETHASONE SOD PHOS INJ 4 MG/ML VIAL ONE (14:22)
[2018-07-13] MEDS ORDERED: SEVOFLURANE INHAL SOLN 250 ML PEN BTL ONE (14:22)
[2018-07-13] MEDS ORDERED: LIDOCAINE HCL 2% LOCAL INJ 5 ML SDV VIAL INJ ONE (14:22)
[2018-07-13] MEDS ORDERED: NEOSTIGMINE 5 MG/5ML SYR ONE (14:22)
[2018-07-13] MEDS ORDERED: MIDAZOLAM HCL 2 MG/2 ML VIAL ONE (14:32)
[2018-07-13 16:33] VITALS: BP 156/79
[2018-07-13] MEDS ORDERED: HYDRALAZINE HCL 20 MG/ML VIAL ONE (17:08)
[2018-07-13] MEDS: ASPIRIN 325 MG TAB PO SCH (17:44)
[2018-07-13] MEDS: CELECOXIB 100 MG CAP PO SCH (17:45)
[2018-07-13] MEDS: DOCUSATE SODIUM 100 MG CAP PO PRN (17:48)
[2018-07-13] MEDS: OXYCODONE/ACETAMINOPHEN 5-325 1 EACH TABLET PO PRN ×2 (18:02→22:05)
[2018-07-13] MEDS: LORAZEPAM 1 MG TAB PO PRN (20:29)
[2018-07-13 20:33] VITALS: BP 167/84
[2018-07-13] MEDS ORDERED: CLONIDINE HCL 0.1 MG TAB PO SCH (21:00)
[2018-07-13] MEDS ORDERED: METHOCARBAMOL 750 MG TAB PO SCH (21:00)
[2018-07-13] MEDS ORDERED: QUETIAPINE FUMARATE 100 MG TAB PO SCH ×2 (21:00)
[2018-07-13 21:35] VITALS: BP 167/84
[2018-07-13 23:59] VITALS: BP 155/95
[2018-07-14] MEDS: ONDANSETRON HCL INJ 2 MG/ML VIAL IV PRN ×2 (01:35→06:19)
[2018-07-14] MEDS: DOCUSATE SODIUM 100 MG CAP PO PRN (02:05)
[2018-07-14] MEDS: OXYCODONE/ACETAMINOPHEN 5-325 1 EACH TABLET PO PRN ×4 (02:05→14:20)
[2018-07-14 04:00] VITALS: BP 131/65
[2018-07-14] MEDS: SODIUM CHLORIDE 0.9% 1000ML 1,000 ML IV SCH ×2 (04:58→14:21)
[2018-07-14] MEDS: ACETAMINOPHEN 1000 MG/100 ML IV SCH ×2 (06:00)
[2018-07-14 06:05] LABS: HEMATOCRIT 33.1 % (38.2-49.6)
[2018-07-14] MEDS: CEFAZOLIN SOD 1 GM VIAL IV SCH (06:12)
[2018-07-14] MEDS ORDERED: MAGNESIUM HYDROXIDE 30 ML UDC PO PRN (07:15)
[2018-07-14 08:07] VITALS: BP 133/75
[2018-07-14] MEDS ORDERED: CHOLECALCIFEROL 1,000 UNIT TAB PO SCH (09:00)
[2018-07-14] MEDS ORDERED: LOSARTAN POTASSIUM 100 MG TAB PO SCH (09:00)
[2018-07-14] MEDS ORDERED: METOPROLOL SUCCINATE 50 MG TAB XL PO SCH (09:00)
[2018-07-14] MEDS ORDERED: NON-FORMULARY MEDICATION (Cholecalciferol (Vitamin D3) (Vitamin D3) 2,000 MG) PO SCH (09:00)
[2018-07-14] MEDS ORDERED: NON-FORMULARY MEDICATION (Losartan/Hydrochlorothiazide (Losartan-Hctz 100-25 Mg Tab) 1 TAB PO SCH (09:00)
[2018-07-14] MEDS ORDERED: FOLIC ACID 1 MG TAB PO SCH (09:00)
[2018-07-14] MEDS ORDERED: ACETAMINOPHEN 1000 MG/100 ML IV PRN (09:00)
[2018-07-14] MEDS ORDERED: VENLAFAXINE HCL 75 MG CAPCR PO SCH (09:00)
[2018-07-14] MEDS ORDERED: CYANOCOBALAMIN 1,000 MCG TAB PO SCH ×2 (09:00)
[2018-07-14] MEDS ORDERED: HYDROCHLOROTHIAZIDE 25 MG TAB PO SCH (09:00)
[2018-07-14] MEDS ORDERED: FENOFIBRATE 145 MG TAB PO SCH (09:00)
[2018-07-14] MEDS: CELECOXIB 100 MG CAP PO SCH (09:05)
[2018-07-14] MEDS: ASPIRIN 325 MG TAB PO SCH (09:05)
[2018-07-14] MEDS: LORAZEPAM 1 MG TAB PO PRN (09:06)
[2018-07-14 09:28] VITALS: BP 133/75
[2018-07-14] MEDS ORDERED: ASPIRIN325 MG PO (11:05)
[2018-07-14 12:14] VITALS: BP 122/65
[2018-07-14] MEDS ORDERED: NORCO 10-325 T1 EACH PO (12:27)
--- OUTSIDE RECORDS SUMMARY | 2018-07-14 14:11 | XMS REPORT | Summary of Care ---
Author Author NIKOLAI POE N.P. Organization Unknown Address Unknown Phone Unavailable Care Team Providers Care Security Assistant Name Role Phone NIKOLAI POE N.P. 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 * Refills: 0 Active CloNIDine HCl - 0.1 MG Oral Tablet TAKE 1 TABLET AT BEDTIME. * Refills: 0 Active Metoprolol Succinate ER 100 MG Oral Tablet Extended Release 24 Hour TAKE 1 TABLET DAILY. * Refills: 0 Active Losartan Potassium-HCTZ 100-25 MG Oral Tablet TAKE 1 TABLET DAILY. * Refills: 0 Active Methocarbamol 500 MG Oral Tablet TAKE 1 TABLET DAILY. * Refills: 0 Active LORazepam 1 MG Oral Tablet TAKE 1 TO 2 TABLETS EVERY 12 HOURS NEEDED. * Quantity: 60 Refills: 0 HARRIS-FOSTER N.P., NIOKLAI Active Vitamin B-12 2500 MCG Sublingual Tablet Sublingual * Refills: 0 Active Vitamin D3 2000 UNIT Oral Capsule * Refills: 0 Active Venlafaxine HCl ER 150 MG Oral Capsule Extended Release 24 Hour TAKE 1 CAPSULE DAILY * Quantity: 30 Refills: 3 HARRIS-FOSTER N.P., NIKOLAI * Start : 16-Apr-2018 Active BusPIRone HCl - 7.5 MG Oral Tablet TAKE 1 TABLET TWICE DAILY NEEDED ANXIETY * Quantity: 60 Refills: 1 HARRIS-FOSTER N.P., NIKOLAI * Start : 18-Jun-2018 Active QUEtiapine Fumarate 100 MG Oral Tablet TAKE 1 TABLET AT BEDTIME. * Quantity: 30 Refills: 1 NIKOLAI POE N.P. * Start : 18-Jun-2018 Active Allergies and Adverse Reactions Name Dates Details No Known Allergies (Allergy) Status: Active Past Medical History Name Dates Details History of depression (V11.8, Z86.59) Status: Resolved History of hypertension (V12.59, Z86.79) Status: Resolved Procedures Procedure Dates Details History of Gallbladder surgery Completed History of Total Hip Replacement Completed History of Repair Of Retinal Detachment Completed Immunization Name Dates Details Immunizations not documented Family History Name Dates Details Family history of hypertension (V17.49, Z82.49) Status: Active Name Dates Details Family history of depression (V17.0, Z81.8) Status: Active Family history of hypertension (V17.49, Z82.49) Status: Active Social History Name Dates Details - Status: Name Dates Details Former smoker Vital Signs Date Test Result Details [id number] BP Systolic 139 mm[Hg] Status: Comments: Location: LUE; Position: Sitting BP Diastolic 90 mm[Hg] Status: Comments: Location: LUE; Position: Sitting Height 68 in Status: Weight 280.3125 lb Status: Body Mass Index Calculated 42.62 kg/m2 Status: Body Surface Area Calculated 2.36 m2 Status: Temperature 98.1 f Status: Comments: Method: Temporal Heart Rate 61 /min Status: Comments: Location: L Brachial Artery; Respiration Rate 16 /min Status: Comments: Quality: Normal Physical Findings 13 Status: Comments: PHQ-9 Adult Depression Screening Physical Findings 0 Status: Comments: Alcohol Screen - How many times in the past yr have you had 5 (for M) or 4 (for F) or 4 (for all > 65yrs) or more drinks in a day? Results Date Description Value Details Results not documented Plan of Care Name Dates Details Planned Observations Planned Goals not documented Planned Encounters Appointment; NIKOLAI POE NP On: 23-Jul-2018 15:00 Interventions Provided Medication Changes* BusPIRone HCl - 7.5 MG Oral Tablet - Start * LORazepam 1 MG Oral Tablet - Renew with Changes * QUEtiapine Fumarate 100 MG Oral Tablet - Start * QUEtiapine Fumarate ER 200 MG Oral Tablet Extended Release 24 Hour - Renew * Venlafaxine HCl ER 150 MG Oral Capsule Extended Release 24 Hour - Renew Plan* BPD/insomnia- continue Venlafaxine but increase to 150 mg, continue Quetiapine ER but increase to 200 mg and add Quetiapine IR 100 mg at bedtime. * Anxiety- Buspirone 7.5 mg in am and repeat at 2 pm and use Lorazepam as needed for break through anxiety. Instructions Name Dates Details Instructions not documented Encounters Appointment; NIKOLAI POE NP Encounter Diagnosis: Problem not documented On: 16-Apr-2018 9:30 Appointment; NIKOLAI POE NP Encounter Diagnosis: Problem not documented On: 01-May-2018 10:00 Appointment; NIKOLAI POE NP Encounter Diagnosis: Problem not documented On: 18-Jun-2018 15:30
--- OUTSIDE RECORDS SUMMARY | 2018-07-14 14:11 | XMS REPORT | Clinical Summary ---
Author Author [facility] Organization [facility] Address Unknown Phone Unavailable Care Team Providers Care Riding Instructor Name Role Phone Nika Newsome MD PCP Allergies Not on File Current Medications Not on file Active Problems Not on file Encounters Date Type Specialty Care Team Description 01/14/2018 Transcribe Physical Therapy Homero Dick MD Trochanteric bursitis of Orders right hip (Primary Dx); Unilateral primary osteoarthritis, right hip 11/27/2017 Transcribe Physical Therapy Homero Dick MD Trochanteric bursitis of Orders right hip (Primary Dx) after 07/12/2017 Social History Tobacco Use Types Packs/Day Years Used Date Never Assessed Sex Assigned at Date Recorded Not on file Last Filed Vital Signs Not on file Plan of Treatment Health Maintenance Due Date Last Done Comments COLON CANCER SCREENING 2010 SHINGRIX VACCINE (#1) 2010 INFLUENZA VACCINE 04/29/2018 Results Not on fileafter 07/12/2017 Insurance Payer Benefit Subscriber ID Type Phone Address Plan / Group CIGNA CIGNA OPEN xxxxxxxxxxx HMO ACCESS/NET WORK
--- OUTSIDE RECORDS SUMMARY | 2018-07-14 14:19 | XMS REPORT | Clinical Summary ---
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
[2018-07-14] MEDS ORDERED: CELECOXIB 200 MG CAP PO SCH (17:00)
--- NOTE | 2018-09-26 12:07 | Consultation ---
DATE OF CONSULTATION: July 14, 2018 REASON FOR CONSULTATION: Postop medical management. HISTORY OF PRESENT ILLNESS: Patient is a 58-year-old gentleman who is status post right hip arthroplasty, is doing well postoperatively with good pain control. REVIEW OF SYSTEMS: Denies any fever, chills, chest pain, nausea, vomiting, headache, shortness of breath, or dizziness. PAST MEDICAL HISTORY: Significant for hypertension and chronic kidney disease stage 3. MEDICATIONS: See MAR. ALLERGIES: NONE. SOCIAL HISTORY: Nonsmoker, nondrinker. FAMILY HISTORY: Noncontributory. PHYSICAL EXAMINATION VITAL SIGNS: Temperature 97.2, pulse 80, blood pressure 155/95, sats are 97%. GENERAL: No apparent distress. NECK: Supple. LUNGS: Clear to auscultation bilaterally. CARDIOVASCULAR: Regular rate and rhythm. ABDOMEN: Good bowel sounds. Soft, nontender. EXTREMITIES: No clubbing or cyanosis. NEUROLOGIC: Nonfocal. ASSESSMENT AND PLAN 1. Anemia. We will check a CBC. 2. Hip pain, which is well controlled. We will continue with physical therapy. 3. Hypertension. Continue to monitor and continue with his home medications. Chronic kidney disease stage Continue to monitor. Please see hospital chart for full details. Job#: [id number] [facility]HEL[facility]
== END 2018-07-14 15:23 | disposition home health service (06) | DRG 470 ==
LOC: OR 05:16 → PACU V 09:00 → MED/SURG 11:39
PROVIDERS: ADMIT Specialist; ATTEND Specialist
PROC: 0SR90JZ Replacement of Right Hip Joint with Synthetic Substitute, Open Approach (ICD-10-PCS; principal; 2018-07-13 07:30)
DX: M16.11 Unilateral primary osteoarthritis, right hip (principal); Z68.41 Body mass index [BMI] 40.0-44.9, adult; Z96.642 Presence of left artificial hip joint; G47.33 Obstructive sleep apnea (adult) (pediatric); D64.9 Anemia, unspecified; Z87.442 Personal history of urinary calculi; F17.210 Nicotine dependence, cigarettes, uncomplicated; E66.9 Obesity, unspecified; I12.9 Hypertensive chronic kidney disease with stage 1 through stage 4 chronic kidney disease, or unspecified chronic kidney disease; N18.3 Chronic kidney disease, stage 3 (moderate); K59.00 Constipation, unspecified
CPT/HCPCS: 36415; 72170; 80048; 85014; 85018; 85025; 86850; 86900; 86920; 97139; C1713; J0171; J0360; J0690; J1100; J1885; J2001; J2250; J2270; J2405; J2795; J7030

== ENCOUNTER 2018-08-30 22:46 | Emergency (ER) | payer OTHER ==
[~2018-08-30] VITALS: Ht 170.2 cm; Wt 126.6 kg
[~2018-08-30 22:46] MED LIST changes: +NORCO 10-325 T1 EACH PO
--- OUTSIDE RECORDS SUMMARY | 2018-08-30 22:48 | XMS REPORT | Summary of Care ---
Author Author NIKOLAI POE N.P. Organization Unknown Address Unknown Phone Unavailable Care Team Providers Care Informatica Mdm Developer Name Role Phone NIKOLAI POE N.P. 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 * Refills: 0 Active CloNIDine HCl - 0.1 MG Oral Tablet TAKE 2 TABLET TWICE DAILY * Refills: 0 Active Metoprolol Succinate ER [...] * Quantity: 60 Refills: 0 HARRIS-FOSTER N.P., NIKOLAI Active Vitamin B-12 2500 MCG Sublingual Tablet Sublingual * Refills: 0 Active Vitamin D3 2000 UNIT Oral Capsule * Refills: 0 Active BusPIRone HCl - 7.5 MG Oral Tablet TAKE 1 TABLET TWICE DAILY NEEDED ANXIETY * Quantity: 60 Refills: 0 HARRIS-FOSTER N.P., NIKOLAI * Start : 18-Jun-2018 Active QUEtiapine Fumarate 100 MG Oral Tablet TAKE 1 TABLET AT BEDTIME. * Quantity: 30 Refills: 0 HARRIS-FOSTER N.P., NIKOLAI * Start : 18-Jun-2018 Active Venlafaxine HCl ER 225 MG Oral Tablet Extended Release 24 Hour TAKE 1 TABLET DAILY * Quantity: 30 Refills: 1 NIKOLAI POE N.P. * Start : 26-Aug-2018 Active Allergies and Adverse Reactions Name Dates Details No Known Allergies (Allergy) Status: Active Past Medical History Name Dates Details History of depression (V11.8, Z86.59) Status: Resolved History of hypertension (V12.59, Z86.79) Status: Resolved Procedures Procedure Dates Details History of Gallbladder surgery Completed History of Total Hip Replacement Completed History of Repair Of Retinal Detachment Completed Immunization Name Dates Details Influenza on: 30-May-2018 Family History Name Dates Details Family history of hypertension (V17.49, Z82.49) Status: Active Name Dates Details Family history of depression (V17.0, Z81.8) Status: Active Family history of hypertension (V17.49, Z82.49) Status: Active Social History Name Dates Details - Status: Name Dates Details Former smoker Vital Signs Date Test Result Details [id number] Physical Findings 0 Status: Comments: Alcohol Screen - How many times in the past yr have you had 5 (for M) or 4 (for F) or 4 (for all > 65yrs) or more drinks in a day? Physical Findings 19 Status: Comments: PHQ-9 Adolescent Depression Screening Results Date Description Value Details Results not documented Plan of Care Name Dates Details Planned Observations Planned Goals not documented Planned Encounters Appointment; NIKOLAI POE NP On: 07-Oct-2018 16:30 Interventions Provided Medication Changes* Venlafaxine HCl ER 225 MG Oral Tablet Extended Release 24 Hour - Start Plan* BPD- increase Venlafaxine to 225 mg and increase Buspirone to 2-3 tablets twice daily. Instructions Name Dates Details Instructions not documented Encounters Appointment; NIKOLAI POE NP Encounter Diagnosis: Problem not documented On: 16-Apr-2018 9:30 Appointment; NIKOLAI POE NP Encounter Diagnosis: Problem not documented On: 01-May-2018 10:00 Appointment; NIKOLAI POE NP Encounter Diagnosis: Problem not documented On: 18-Jun-2018 15:30 Appointment; NIKOLAI POE NP Encounter Diagnosis: Problem not documented On: 23-Jul-2018 15:00 Appointment; NIKOLAI POE NP Encounter Diagnosis: Problem not documented On: 26-Aug-2018 17:00
--- OUTSIDE RECORDS SUMMARY | 2018-08-30 22:48 | XMS REPORT | Continuity of Care Document ---
Author Author [facility] Address Unknown Phone Unavailable Problems Problem Status Onset Date Classification Date Reported Comments Source Medications Medication Details Route Status Patient Instructions Ordering Provider Order Date Source Trazodone Hcl 100 Mg Tablet, 100 Mg Oral As Needed Active 12/21/2017 [facility] Aspirin 325 Mg Tablet Twice Daily With Meals Active [facility] 09/18/2016 [facility] Tramadol Hcl (Ultram) 50 Mg Tablet, 50 Mg Oral As Needed as needed for Pain Active 09/18/2016 [facility] Clonidine Hcl 0.1 Mg Tablet Bedtime Active [facility] Escitalopram Oxalate (Lexapro) 20 Mg Tablet Daily Active [facility] Fenofibrate (Tricor) 145 Mg Tab Bedtime Active [facility] Ferrous Sulfate 325 Mg Tablet Daily Active [facility] Folic Acid 1 Mg Tablet Daily Active [facility] Hydrocodone Bit/Acetaminophen ([place] 7.5-325 Tablet) 1 Each Tablet As Needed as needed for Pain Active [facility] Lorazepam 0.5 Mg Tablet Twice A Day as needed for Anxiety Active [facility] Losartan/Hydrochlorothiazide (Losartan-Hctz 100-25 Mg Tab) 1 Each Tablet Daily Active [facility] Meloxicam 7.5 Mg Tablet Daily Active [facility] Methocarbamol 750 Mg Tablet Bedtime Active [facility] Metoprolol Succinate 50 Mg Tab.er.24h Daily Active [facility] Quetiapine Fumarate (Seroquel) 100 Mg Tablet Bedtime Active [facility] Tramadol Hcl (Ultram 50MG*) 50 Mg Tab Every 4 Hours as needed for Pain Active [facility] Allergies, Adverse Reactions, Alerts Substance Category Reaction Severity Reaction type Status Date Reported Comments Source Immunizations Immunization Date Given Site Status Last Updated Comments Source Results Order Name Results Value Reference Range Date Interpretation Comments Source Vital Signs Vital Sign Value Date Comments Source Encounters Location Location Details Encounter Type Encounter Number Reason For Visit Attending Provider ADM Date DC Date Status Source Admitted Inpatient [id number] RICA CARMONA MD 12/23/2017 [facility] Procedures Procedure Code Date Perfomer Comments Source Cholecystectomy [id number] 12/25/2017 [facility] ERCP (endoscopic retrograde cholangiopancreatography) [id number] 12/24/2017 [facility] Magnetic resonance cholangiopancreatography (MRCP) without contrast [id number] 12/22/2017 [facility]
--- OUTSIDE RECORDS SUMMARY | 2018-08-30 22:48 | XMS REPORT | Clinical Summary ---
Author Author [facility] Organization [facility] Address Unknown Phone Unavailable Care Team Providers Care Visitor Services Information Assistant Name Role Phone Nika Newsome MD PCP Allergies Not on File Medications Not on file Active Problems Not on file Encounters Care Team Description Date Type Specialty Homero Dick MD Trochanteric bursitis of right hip (Primary Dx); Unilateral primary osteoarthritis, right hip 01/14/2018 Transcribe Physical Therapy Orders Homero Dick MD Trochanteric bursitis of right hip (Primary Dx) 11/27/2017 Transcribe Physical Therapy Orders after 08/29/2017 Social History Date Tobacco Use Types Packs/Day Years Used Never Assessed Sex Assigned at Date Recorded Not on file Industry Job Start Date Occupation Not on file Not on file Not on file Travel End Travel History Travel Start No recent travel history available. Last Filed Vital Signs Not on file Plan of Treatment Health Maintenance Due Date Last Done Comments MMR VACCINES (1 of 1 - 1961 Standard series) VARICELLA VACCINES (1 of 1973 2 - 2-dose adolescent series) COLON CANCER SCREENING 2010 SHINGRIX VACCINE (1 of 2) 2010 INFLUENZA VACCINE 04/29/2018 HEPATITIS B VACCINES Aged Out No longer eligible based on patient's age to complete this topic IPV VACCINES Aged Out No longer eligible based on patient's age to complete this topic MENINGOCOCCAL VACCINE Aged Out No longer eligible based on patient's age to complete this topic Results Not on fileafter 08/29/2017 Insurance Payer Benefit Subscriber ID Type Phone Address Plan / Group CIGNA CIGNA OPEN xxxxxxxxxxx HMO ACCESS/NET WORK Advance Directives Patient has advance care planning documents on file. For more information, aman gamez contact: Navin Shoemaker [address] [place] [address]
[2018-08-30 23:28] LABS: BASOPHILS % 0.5 % (0.0-1.0); EOSINOPHILS # (AUTO) 0.2 (0.0-0.4); EOSINOPHILS % 4.1 % (0.0-6.0); HEMATOCRIT 37.3 % (38.2-49.6); HEMOGLOBIN 12.3 g/dL (14.0-18.0); LYMPHOCYTES # (AUTO) 2.2 (1.0-3.2); LYMPHOCYTES % 38.5 % (18.0-39.1); MEAN CORPUSCULAR HEMOGLOBIN 29.6 pg (28-32); MEAN CORPUSCULAR VOLUME 89.7 fL (81-99); MONOCYTES # (AUTO) 0.4 (0.2-0.8); MONOCYTES % 7.6 % (4.4-11.3); NEUTROPHILS # (AUTO) 2.8 (2.1-6.9); NEUTROPHILS % 48.9 % (38.7-80.0); PLATELET COUNT 230 x10e3/uL (140-360); RED BLOOD COUNT 4.16 x10e6/uL (4.3-5.7)
[2018-08-30 23:49] LABS: ALANINE AMINOTRANSFERASE 16 IU/L (0-55); ALBUMIN 4.1 g/dL (3.5-5.0); ALBUMIN/GLOBULIN RATIO 1.3 (0.8-2.0); ALKALINE PHOSPHATASE 55 IU/L (40-150); ANION GAP 13.1 mmol/L (8-16); BLOOD UREA NITROGEN 25 mg/dL (7-26); BUN/CREATININE RATIO 18 (6-25); CARBON DIOXIDE 26 mmol/L (22-29); CHLORIDE 103 mmol/L (98-107); CREATINE KINASE 128 IU/L (30-200); CREATININE, SERUM 1.38 mg/dL (0.72-1.25); EST GLOMERULAR FILTRATION RATE 53 ML/MIN (60-); GLUCOSE 115 mg/dL (74-118); POTASSIUM 3.1 mmol/L (3.5-5.1); SODIUM 139 mmol/L (136-145)
[2018-08-31] MEDS ORDERED: POTASSIUM CHLORIDE 20 MEQ TAB CR PO STA (01:06)
--- NOTE | 2018-08-31 01:39 | Diagnostic Imaging Report ---
EXAM: CHEST SINGLE (PORTABLE), AP 1 view INDICATION: Not provided COMPARISON: None FINDINGS: LINES/TUBES: None LUNGS: No consolidations or edema. Bibasilar subsegmental atelectasis. PLEURA: No effusions or pneumothorax. HEART AND MEDIASTINUM: Within normal limits for technique and positioning. BONES AND SOFT TISSUES: No acute findings. IMPRESSION: Bibasilar subsegmental atelectasis. Signed by: Dr. Lucy Ramirez M.D. on 08/31/2018 1:36 AM
--- NOTE | 2018-09-23 17:01 | Discharge Summary ---
CHIEF COMPLAINT: Right hip knee pain. HISTORY OF PRESENT ILLNESS: This patient is a 58-year-old male, who complains of right hip pain. Over the last year, he states the pain has gotten progressively worse. His x-rays are consistent with advanced arthritis of the right hip. He has tried multiple forms of conservative management including a right fluoroscopic hip injection without lasting relief. He has already been through a left total hip replacement with our service and now wishes to proceed with a right total hip replacement. The risks and benefits were explained. The patient states she understands and wishes proceed. HOSPITAL COURSE: The patient underwent a right total hip replacement without complications. He was then transferred to the recovery room and the floor in stable condition. He remained stable through his hospital stay. He progressed fine with physical therapy and was able to be discharged home on postop day 1. PRINCIPAL DIAGNOSIS: Osteoarthritis of the right hip. PRINCIPAL PROCEDURE: Right total hip replacement. DISCHARGE INSTRUCTIONS: Patient was discharged home with home physical therapy arranged. He was to be weightbearing as tolerated with a rolling walker. He was to follow posterior precautions. He was instructed to resume his home medications as directed. He was going to take aspirin twice a day for thromboprophylaxis. He will return to our office in roughly 8 to 10 days. Dictated by: Alvin Alston PA-C TRENT ISBELL MD Job#: [id number] CQ
== END 2018-08-31 01:55 | disposition home or self-care (01) ==
LOC: ER 22:46
DX: I10 Essential (primary) hypertension (principal); E87.6 Hypokalemia; K52.9 Noninfective gastroenteritis and colitis, unspecified; F41.9 Anxiety disorder, unspecified
CPT/HCPCS: 36415; 71045; 80053; 82550; 82553; 83735; 84484; 85025; 85379; 93005; 99284

== ENCOUNTER → 2019-12-02 | Outpatient (CLI) | payer OTHER ==
[~2019-12-02] MED LIST changes: +AMLODIPINE BESYL5 MG PO; +BENICAR HCT 401 EACH PO; +BENICAR20 MG PO; +GABAPENTIN300 MG PO; +XANAX XR0.5 MG PO
== END ==
LOC: DX 14:53 → EDSTATUS 12-27 07:00
PROVIDERS: ATTEND Specialist
DX: Z01.818 Encounter for other preprocedural examination (principal); S83.242A Other tear of medial meniscus, current injury, left knee, initial encounter; Z53.8 Procedure and treatment not carried out for other reasons
CPT/HCPCS: 93005

== ENCOUNTER 2022-10-15 11:01 | Emergency (ER) | payer OTHER ==
[~2022-10-15] VITALS: Ht 170.2 cm; Wt 126.6 kg
[2022-10-15] MEDS ORDERED: KETOROLAC TROMETHAMINE 30 MG/ML VIAL IM STA (12:19)
[2022-10-15] MEDS ORDERED: ANAPROX DS550 MG PO (12:26)
[2022-10-15] MEDS ORDERED: METHOCARBAMOL750 MG PO (12:26)
[2022-10-15] MEDS ORDERED: MEDROL4 M2 PO (12:26)
[2022-10-15] MEDS ORDERED: KETOROLAC TROMETHAMINE 60 MG/2 ML VIAL ONE (12:34)
[2022-10-15] MEDS ORDERED: DEXAMETHASONE SOD PHOS 10 MG/1 ML VIAL IM ONE (13:00)
== END 2022-10-15 12:34 | disposition home or self-care (01) ==
LOC: ER 11:09
DX: M54.41 Lumbago with sciatica, right side (principal); M46.1 Sacroiliitis, not elsewhere classified; I10 Essential (primary) hypertension; F41.9 Anxiety disorder, unspecified; F32.A Depression, unspecified
CPT/HCPCS: 99282; J1100; J1885

== ENCOUNTER 2023-03-17 20:33 | Emergency (ER) | payer MEDICARE, OTHER ==
[~2023-03-17] VITALS: Ht 170.2 cm; Wt 126.6 kg
[~2023-03-17 20:33] MED LIST changes: +ANAPROX DS550 MG PO; +MEDROL4 M2 PO
[2023-03-17 21:38] VITALS: O2SAT 97
[2023-03-17] MEDS ORDERED: ACETAMINOPHEN 325 MG TAB PO ONE (21:45)
[2023-03-17] MEDS ORDERED: ACETAMINOPHEN 325 MG/10 ML UDC ONE (21:48)
[2023-03-17] MEDS ORDERED: ACETAMINOPHEN 325 MG/10 ML UDC PO STA (21:49)
[2023-03-17] MEDS ORDERED: PAXLOVID 300-11 EACH PO (21:51)
== END 2023-03-17 21:53 | disposition home or self-care (01) ==
LOC: ER 20:50
DX: R50.9 Fever, unspecified (principal); U07.1 COVID-19; R05.9 Cough, unspecified; I10 Essential (primary) hypertension; F41.9 Anxiety disorder, unspecified; Z87.442 Personal history of urinary calculi
CPT/HCPCS: 99283

== ENCOUNTER 2025-03-22 04:09 | Emergency (ER) | payer MEDICARE, BC ==
[~2025-03-22] VITALS: Ht 172.7 cm; Wt 122.5 kg
[~2025-03-22 04:09] MED LIST changes: +ATIVAN0.5 MG PO; +PAXLOVID 300-11 EACH PO
[2025-03-22 04:14] VITALS: PULSE 73; RESP 20; TEMP 99.1
[2025-03-22] MEDS: DEXAMETHASONE SOD PHOS 10 MG/1 ML VIAL IM STA (04:35)
[2025-03-22] MEDS: ACETAMINOPHEN 325 MG TAB PO STA (04:35)
[2025-03-22] MEDS: KETOROLAC TROMETHAMINE 60 MG/2 ML VIAL IM ONE (04:36)
[2025-03-22 05:06] LABS: STREPTOCOCCUS GRP A ANTIGEN NEGATIVE (NEGATIVE)
[2025-03-22 05:09] LABS: INFLUENZA A AG NEGATIVE (NEGATIVE); INFLUENZA B AG NEGATIVE (NEGATIVE)
[2025-03-22 05:10] LABS: CORONAVIRUS COVID-19 AG POSITIVE (NEGATIVE)
[2025-03-22] MEDS ORDERED: VENTOLIN HFA18 GM INH (05:12)
[2025-03-22] MEDS ORDERED: PAXLOVID 150-11 EAC2 PO (05:12)
[2025-03-22 05:21] VITALS: BP 171/97; O2SAT 97
== END 2025-03-22 05:24 | disposition home or self-care (01) ==
LOC: ER 04:22
DX: R05.9 Cough, unspecified (principal); U07.1 COVID-19; I10 Essential (primary) hypertension; F41.9 Anxiety disorder, unspecified; F32.A Depression, unspecified; M19.09 Primary osteoarthritis, other specified site
CPT/HCPCS: 71046; 83518; 87070; 87428; 99283; J1100; J1885